=== PATIENT | male | born 1930 | race Caucasian/White ===

== ENCOUNTER → 2016-09-11 | Outpatient (CLI) | payer OTHER ==
[~2016-09-11] MED LIST: ASPIR 8181 MG PO; CALCIUM 600 +1 EAC1 PO; CEFDINIR300 MG; CENTRUM SILVER1 EAC2 PO; COUMADIN 3 MG TA3 M1 PO; CRESTOR10 MG PO; DOXYCYCLINE 10100 MG PO; FISH OIL 1,001000 M2 PO; GLUCOSAMINE &1 EACH PO; HYDROCODONE-AP1 EAC6 PO; IRON325 PO; JUICE PLUS PO; LEVOTHYROXIN0.025 MG PO; LISINOPRIL2.5 MG PO; LOPRESSOR50 PO; OMEGA-31000 M1 PO; PRILOSEC20 MG PO; REFRESH P.M. O3.5 G2 OP; THERA TEARS1 EAC1 OP; TOPROL XL50 MG PO; TRAVATAN Z5 ML OP; VITAMIN D1000 UNI1 PO
== END | disposition home or self-care (01) ==
LOC: OPONC 09:27
DX: K62.5 Hemorrhage of anus and rectum (principal)
CPT/HCPCS: 91018